=== PATIENT | female | born 1930 | race Caucasian/White ===

== ENCOUNTER 2019-05-15 00:51 | Emergency (ER) | payer OTHER, BC ==
[~2019-05-15] VITALS: Ht 149.9 cm; Wt 50.3 kg
[2019-05-15 01:02] VITALS: Ht 149.9 cm; Wt 50.3 kg
[2019-05-15 02:00] LABS: CALCIUM 9.3 mg/dL (8.5-10.1); CARBON DIOXIDE 28.8 mmol/L (21-32); CHLORIDE SERUM 107 mmol/L (98-107); CREATININE SERUM 0.7 mg/dL (0.6-1.0); GLUCOSE SERUM 91 mg/dL (74-106); POTASSIUM SERUM 3.7 mmol/L (3.5-5.1); SODIUM SERUM 142 mmol/L (136-145)
[2019-05-15 02:04] LABS: BASOPHIL % 1.2 % (0-2); PLATELET COUNT 278 x10^3mcL (130-400); RED CELL DISTRIBUTION WIDTH 13.1 % (11.5-14.5)
[2019-05-15 02:05] LABS: ALKALINE PHOSPHATASE 96 U/L (46-116); ALT/SGPT 20 U/L (14-59); AST/SGOT 22 U/L (15-37); BILIRUBIN TOTAL 0.21 mg/dL (0.20-1.00); LIPASE 189 IU/L (73-393); TOTAL PROTEIN, SERUM 6.6 g/dL (6.4-8.2)
[2019-05-15 02:07] LABS: ALBUMIN 3.3 g/dL (3.4-5.0)
[2019-05-15 03:25] VITALS: BP 139/57
== END 2019-05-15 03:25 ==
LOC: ED 00:51
PROVIDERS: Emergency Medicine
DX: R00.2 Palpitations (principal); R46.4 Slowness and poor responsiveness
CPT/HCPCS: 36415; Q0092